=== PATIENT | male | born 1970 | race Hispanic/Latino ===

== ENCOUNTER 2019-10-17 16:28 | Inpatient (IN) | payer OTHER, SELFPAY ==
[~2019-10-17] VITALS: Ht 172.7 cm; Wt 113.0 kg
[2019-10-17 16:53] LABS: BASOPHILS % (AUTO) 0.1 % (0.0-5.0); EOSINOPHILS % (AUTO) 0.1 % (0.0-8.0); HEMATOCRIT 45.6 % (42-54); LYMPHOCYTES % (AUTO) 5.4 % (21.0-51.0); MEAN CORPUSCULAR HEMOGLOBIN 30.3 pg (27.0-33.0); MEAN CORPUSCULAR HGB CONC 34.6 g/dL (32.0-36.0); MEAN CORPUSCULAR VOLUME 87.4 fL (79-99); MONOCYTES % (AUTO) 3.4 % (3.0-13.0); NEUTROPHILS % (AUTO) 90.1 % (40.0-77.0); PLATELET COUNT (AUTO) 240 K/uL (130-400); RED BLOOD CELL COUNT(AUTO) 5.22 MIL/uL (4.50-6.20); RED CELL DISTRIBUTION WIDTH 11.7 % (11.0-15.5); WHITE BLOOD COUNT (AUTO) 13.1 K/uL (4.8-10.8)
[2019-10-17 17:09] LABS: CARBON DIOXIDE 26 mmol/L (21-32); CHLORIDE 96 mmol/L (101-111); CREATININE 1.3 mg/dL (0.5-1.5); GLOMERULAR FILTR. RATE CALC 62 mL/min (>60); GLUCOSE,RANDOM 256 mg/dL (70-105); POTASSIUM 3.4 mmol/L (3.5-5.1); SODIUM SERUM 131 mmol/L (136-145); UREA NITROGEN, BLOOD 14 mg/dL (7-18)
[2019-10-17 17:14] LABS: PARTIAL THROMBOPLASTIN TIME 30.6 SEC (26.3-35.5); PROTHROMBIN TIME 10.8 SEC (9.6-11.6)
[2019-10-17 17:16] LABS: LACTATE DEHYDROGENASE 394 U/L (81-234)
[2019-10-17 17:22] LABS: ALANINE AMINOTRANSFERASE 27 U/L (12-78); ALBUMIN 2.9 g/dL (3.5-5.0); ASPARTATE AMINOTRANSFERASE 27 U/L (10-37); BILIRUBIN,TOTAL 0.8 mg/dL (0.2-1.0); CREATINE KINASE, TOTAL 118 U/L (21-232); MYOGLOBIN 55 ng/mL (10-92); TOTAL PROTEIN, SERUM 8.2 g/dL (6.0-8.3); TROPONIN I < 0.04 ng/mL (0.00-0.06)
[2019-10-17] MEDS ORDERED: METHYLPREDNISOLONE SOD SUCC 40MG/ML 1ML ONE (18:01)
[2019-10-17] MEDS ORDERED: ENOXAPARIN SODIUM 120 MG/0.8ML SQ ONE (18:01)
[2019-10-17] MEDS ORDERED: ONDANSETRON HCL 4 MG/2 ML VIAL IV PRN (18:30)
[2019-10-17] MEDS ORDERED: ERGOCALCIFEROL (VITAMIN D2) 50,000 UNIT CAPSULE PO ONE (18:30)
[2019-10-17] MEDS: AZITHROMYCIN 500MG+NS 250ML 250 ML IV SCH (18:30)
[2019-10-17] MEDS ORDERED: ACETAMINOPHEN 325 MG TAB PO PRN ×2 (18:30)
[2019-10-17] MEDS ORDERED: DOXYCYCLINE 100MG+NS 250ML 250 ML IV SCH (18:30)
[2019-10-17] MEDS: POTASSIUM CHLORIDE 20 MEQ ERTAB PO SCH (18:45)
[2019-10-17] MEDS ORDERED: ADENOSINE 3 MG/ML 2ML VIAL IV ONE (18:54)
[2019-10-17] MEDS ORDERED: IOHEXOL 350 MG/ML 100ML INFUS..BTL IV ONE (19:00)
[2019-10-17] MEDS ORDERED: SODIUM CHLORIDE 0.9% 1000ML 1,000 ML IV SCH (19:15)
[2019-10-17] MEDS ORDERED: AZITHROMYCIN 500MG+NS 250ML 250 ML IV ONE (20:15)
[2019-10-17] MEDS ORDERED: ERGOCALCIFEROL (VITAMIN D2) 50,000 UNIT CAPSULE ONE (20:17)
[2019-10-17] MEDS ORDERED: POTASSIUM CHLORIDE 20 MEQ ERTAB PO ONE (20:18)
[2019-10-17] MEDS ORDERED: ACETYLCYSTEINE 600 MG CAPSULE ONE (20:18)
[2019-10-17] MEDS: ACETYLCYSTEINE 600 MG CAPSULE PO SCH (21:00)
[2019-10-17] MEDS: METHYLPREDNISOLONE SOD SUCC 40MG/ML 1ML IVP SCH (21:00)
[2019-10-17] MEDS: INSULIN HUMULIN R 100 UNIT/ML 3ML SQ SCH (21:00)
[2019-10-17] MEDS ORDERED: DOXYCYCLINE 100MG+NS 250ML 250 ML IV ONE (22:56)
[2019-10-18] VITALS (7 sets, daily range): BP systolic 103–122; BP diastolic 59–82
[2019-10-18] MEDS ORDERED: SITA100T12 PO (01:13)
[2019-10-18 05:10] LABS: BASOPHILS % (AUTO) 0.2 % (0.0-5.0); HEMATOCRIT 44.3 % (42-54); LYMPHOCYTES % (AUTO) 6.7 % (21.0-51.0); MEAN CORPUSCULAR HEMOGLOBIN 30.1 pg (27.0-33.0); MEAN CORPUSCULAR HGB CONC 34.1 g/dL (32.0-36.0); MEAN CORPUSCULAR VOLUME 88.4 fL (79-99); MONOCYTES % (AUTO) 3.9 % (3.0-13.0); NEUTROPHILS % (AUTO) 88.2 % (40.0-77.0); PLATELET COUNT (AUTO) 232 K/uL (130-400); RED BLOOD CELL COUNT(AUTO) 5.01 MIL/uL (4.50-6.20); RED CELL DISTRIBUTION WIDTH 11.8 % (11.0-15.5); WHITE BLOOD COUNT (AUTO) 11.4 K/uL (4.8-10.8)
[2019-10-18 05:31] LABS: ALANINE AMINOTRANSFERASE 24 U/L (12-78); ALBUMIN 2.8 g/dL (3.5-5.0); ASPARTATE AMINOTRANSFERASE 21 U/L (10-37); BILIRUBIN,TOTAL 0.6 mg/dL (0.2-1.0); CARBON DIOXIDE 27 mmol/L (21-32); CHLORIDE 101 mmol/L (101-111); GLOMERULAR FILTR. RATE CALC 84 mL/min (>60); GLUCOSE,RANDOM 154 mg/dL (70-105); LACTATE DEHYDROGENASE 382 U/L (81-234); POTASSIUM 3.9 mmol/L (3.5-5.1); SODIUM SERUM 137 mmol/L (136-145); TOTAL PROTEIN, SERUM 7.4 g/dL (6.0-8.3); UREA NITROGEN, BLOOD 12 mg/dL (7-18)
[2019-10-18] MEDS: INSULIN HUMULIN R 100 UNIT/ML 3ML SQ SCH ×4 (06:20→21:05)
[2019-10-18] MEDS: METHYLPREDNISOLONE SOD SUCC 40MG/ML 1ML IVP SCH ×3 (08:16→20:37)
[2019-10-18] MEDS: ENOXAPARIN SODIUM 40 MG/0.4 ML SYRINGE SQ SCH (08:16)
[2019-10-18] MEDS: ASCORBIC ACID 500 MG TAB PO SCH (08:17)
[2019-10-18] MEDS: ACETYLCYSTEINE 600 MG CAPSULE PO SCH ×2 (08:17→21:00)
[2019-10-18] MEDS: ZINC SULFATE 220 CAPSULE PO SCH (08:17)
--- NOTE | 2019-10-18 09:33 | NUR ---
CHART CHECK COMPLETED. Pt IS A 49 Y.O. MALE ADMITTED SECONDARY TO [facility]PIRAT[facility] FAILURE, COVID+. Pt HAS A PAST MEDICAL HISTORY SIGNIFICANT FOR DMII, HYPERTENSION, HLD. Pt CURRENTLY ON REGULAR TEXTURE,THIN LIQUID DIET (CONSISTENT CARB). PLEASE REQUEST FORMAL SKILLED SPEECH/SWALLOW EVALUATION IF Pt PRESENTS WITH +S/S OF ASPIRATION SUCH COUGH RESPONSE, THROAT CLEAR, OR WET VOCAL QUALITY DURING P.O. Addendum: 10/18/19 at 0935 by PATY RIZO, SPT ST Amended: Links added.
--- NOTE | 2019-10-18 11:24 | NUR ---
SELENA PLAN VISITED WITH PATIENT. PATIENT IN COVID UNIT. CALLED PATIENT ROOM AND PHONE. DID NOT ANSWER. LOOKED MY IN THE EYE SHOCK HIS HEAD AND CLOSED HIS EYES. DID NOT ANSWER PHONE. Addendum: 10/18/19 at 1126 by SHAKA BURROWS RN Amended: Links added.
--- NOTE | 2019-10-18 15:40 | NUR ---
Family Contact Pt oswaldo listed spouse to be Abimbola Bates with the phone number [phone]. This phone number is invalid.
[2019-10-18] MEDS: DOXYCYCLINE 100MG+NS 250ML 250 ML IV SCH ×2 (16:11→20:37)
[2019-10-18] MEDS: AZITHROMYCIN 500MG+NS 250ML 250 ML IV SCH (17:45)
[2019-10-18] MEDS: POTASSIUM CHLORIDE 20 MEQ ERTAB PO SCH (17:46)
[2019-10-19 04:53] VITALS: BP 122/76
[2019-10-19 05:03] LABS: BASOPHILS % (AUTO) 0.2 % (0.0-5.0); LYMPHOCYTES % (AUTO) 5.2 % (21.0-51.0); MEAN CORPUSCULAR HEMOGLOBIN 30.4 pg (27.0-33.0); MEAN CORPUSCULAR HGB CONC 34.3 g/dL (32.0-36.0); MEAN CORPUSCULAR VOLUME 88.5 fL (79-99); MONOCYTES % (AUTO) 3.3 % (3.0-13.0); NEUTROPHILS % (AUTO) 90.2 % (40.0-77.0); PLATELET COUNT (AUTO) 275 K/uL (130-400); RED BLOOD CELL COUNT(AUTO) 4.97 MIL/uL (4.50-6.20); RED CELL DISTRIBUTION WIDTH 11.6 % (11.0-15.5); WHITE BLOOD COUNT (AUTO) 13.2 K/uL (4.8-10.8)
[2019-10-19 05:26] LABS: ALANINE AMINOTRANSFERASE 24 U/L (12-78); ALBUMIN 2.6 g/dL (3.5-5.0); ASPARTATE AMINOTRANSFERASE 20 U/L (10-37); BILIRUBIN,TOTAL 0.5 mg/dL (0.2-1.0); CARBON DIOXIDE 26 mmol/L (21-32); CHLORIDE 103 mmol/L (101-111); GLOMERULAR FILTR. RATE CALC 84 mL/min (>60); GLUCOSE,RANDOM 181 mg/dL (70-105); LACTATE DEHYDROGENASE 414 U/L (81-234); SODIUM SERUM 138 mmol/L (136-145); UREA NITROGEN, BLOOD 17 mg/dL (7-18)
[2019-10-19] MEDS: INSULIN HUMULIN R 100 UNIT/ML 3ML SQ SCH ×4 (06:47→22:15)
[2019-10-19 08:23] VITALS: BP 132/88
[2019-10-19] MEDS: METHYLPREDNISOLONE SOD SUCC 40MG/ML 1ML IVP SCH ×3 (09:21→22:15)
[2019-10-19] MEDS: ZINC SULFATE 220 CAPSULE PO SCH (09:21)
[2019-10-19] MEDS: ASCORBIC ACID 500 MG TAB PO SCH (09:21)
[2019-10-19] MEDS: ENOXAPARIN SODIUM 40 MG/0.4 ML SYRINGE SQ SCH (09:21)
[2019-10-19] MEDS: ACETYLCYSTEINE 600 MG CAPSULE PO SCH ×2 (09:21→21:00)
[2019-10-19] MEDS: DOXYCYCLINE 100MG+NS 250ML 250 ML IV SCH ×2 (09:22→22:15)
[2019-10-19 11:49] VITALS: BP 131/93
[2019-10-19 15:34] VITALS: BP 128/92
[2019-10-19] MEDS: AZITHROMYCIN 500MG+NS 250ML 250 ML IV SCH (17:30)
[2019-10-19] MEDS: POTASSIUM CHLORIDE 20 MEQ ERTAB PO SCH (17:30)
[2019-10-19 19:28] VITALS: BP 137/74
--- NOTE | 2019-10-19 22:57 | NUR ---
PATIENT WAS ABLE TO GET UP TO BEDSIDE COMMODE WITH MINIMAL ASSIST. OXYGEN SAT MAINTAINED. NO COMPLAINTS OF RESPIRATORY DISTRESS OR SHORTNESS OF BREATH AT THIS TIME..
[2019-10-19 23:06] VITALS: BP 106/62
[2019-10-20 03:40] VITALS: BP 135/97
[2019-10-20] MEDS: INSULIN HUMULIN R 100 UNIT/ML 3ML SQ SCH ×4 (06:10→21:08)
[2019-10-20 06:11] LABS: BASOPHILS % (AUTO) 0.2 % (0.0-5.0); LYMPHOCYTES % (AUTO) 5.6 % (21.0-51.0); MEAN CORPUSCULAR HEMOGLOBIN 30.4 pg (27.0-33.0); MEAN CORPUSCULAR HGB CONC 34.1 g/dL (32.0-36.0); MEAN CORPUSCULAR VOLUME 89.2 fL (79-99); MONOCYTES % (AUTO) 4.4 % (3.0-13.0); NEUTROPHILS % (AUTO) 88.1 % (40.0-77.0); PLATELET COUNT (AUTO) 300 K/uL (130-400); RED BLOOD CELL COUNT(AUTO) 4.93 MIL/uL (4.50-6.20); RED CELL DISTRIBUTION WIDTH 11.6 % (11.0-15.5); WHITE BLOOD COUNT (AUTO) 12.4 K/uL (4.8-10.8)
[2019-10-20 06:33] LABS: ALANINE AMINOTRANSFERASE 19 U/L (12-78); ALBUMIN 2.7 g/dL (3.5-5.0); ASPARTATE AMINOTRANSFERASE 19 U/L (10-37); BILIRUBIN,TOTAL 0.5 mg/dL (0.2-1.0); CARBON DIOXIDE 28 mmol/L (21-32); CHLORIDE 104 mmol/L (101-111); GLOMERULAR FILTR. RATE CALC 84 mL/min (>60); GLUCOSE,RANDOM 178 mg/dL (70-105); LACTATE DEHYDROGENASE 373 U/L (81-234); SODIUM SERUM 140 mmol/L (136-145); TOTAL PROTEIN, SERUM 7.1 g/dL (6.0-8.3); UREA NITROGEN, BLOOD 21 mg/dL (7-18)
[2019-10-20 08:00] VITALS: BP 121/88
[2019-10-20 11:00] VITALS: BP 118/73
[2019-10-20] MEDS: ASCORBIC ACID 500 MG TAB PO SCH (11:18)
[2019-10-20] MEDS: ENOXAPARIN SODIUM 40 MG/0.4 ML SYRINGE SQ SCH (11:18)
[2019-10-20] MEDS: DOXYCYCLINE 100MG+NS 250ML 250 ML IV SCH ×2 (11:18→21:06)
[2019-10-20] MEDS: ZINC SULFATE 220 CAPSULE PO SCH (11:18)
[2019-10-20] MEDS: METHYLPREDNISOLONE SOD SUCC 40MG/ML 1ML IVP SCH ×3 (11:18→21:06)
[2019-10-20] MEDS: ACETYLCYSTEINE 600 MG CAPSULE PO SCH ×2 (12:23→21:06)
--- NOTE | 2019-10-20 13:14 | NUR ---
DC PLAN PATIENT IN COVID UNIT. STOOD IN FRONT OF DOOR THROUGH WINDOW. SAW PHONE RINGING. PATIENT ROLLED OVER DID NOT ANSWER PHONE. Addendum: 10/20/19 at 1316 by SHAKA BURROWS RN CM Amended: Links added.
[2019-10-20 15:30] VITALS: BP 127/89
[2019-10-20] MEDS: POTASSIUM CHLORIDE 20 MEQ ERTAB PO SCH (17:33)
[2019-10-20] MEDS: AZITHROMYCIN 500MG+NS 250ML 250 ML IV SCH (17:33)
[2019-10-20 20:20] VITALS: BP 116/80
[2019-10-20 23:55] VITALS: BP 112/67
[2019-10-21 04:00] VITALS: BP 116/73
[2019-10-21] MEDS: INSULIN HUMULIN R 100 UNIT/ML 3ML SQ SCH ×4 (06:19→21:06)
[2019-10-21 07:00] VITALS: BP 123/81
[2019-10-21] MEDS: ASCORBIC ACID 500 MG TAB PO SCH (08:41)
[2019-10-21] MEDS: ZINC SULFATE 220 CAPSULE PO SCH (08:41)
[2019-10-21] MEDS: ACETYLCYSTEINE 600 MG CAPSULE PO SCH ×2 (08:41→21:05)
[2019-10-21] MEDS: ENOXAPARIN SODIUM 40 MG/0.4 ML SYRINGE SQ SCH (08:41)
[2019-10-21] MEDS: DOXYCYCLINE 100MG+NS 250ML 250 ML IV SCH ×2 (08:43→21:05)
[2019-10-21] MEDS: METHYLPREDNISOLONE SOD SUCC 40MG/ML 1ML IVP SCH ×3 (08:47→21:05)
[2019-10-21] MEDS ORDERED: PHARMACY COMMUNICATION***REMDESIVIR ORDER MISC SCH (10:00)
[2019-10-21 11:00] VITALS: BP 122/77
[2019-10-21 15:00] VITALS: BP 130/76
--- NOTE | 2019-10-21 16:05 | NUR ---
DC PLAN CALLED PATIENT ROOM AND PHONE NO ANSWER. KLEVER WILL CONTINUE TO TRY. Addendum: 10/21/19 at 1605 by SHAKA BURROWS RN CM Amended: Links added.
[2019-10-21] MEDS: POTASSIUM CHLORIDE 20 MEQ ERTAB PO SCH (17:07)
[2019-10-21] MEDS: AZITHROMYCIN 500MG+NS 250ML 250 ML IV SCH (17:08)
[2019-10-21 20:20] VITALS: BP 106/64
[2019-10-21 23:35] VITALS: BP 113/76
[2019-10-22 04:35] VITALS: BP 122/56
[2019-10-22] MEDS: INSULIN HUMULIN R 100 UNIT/ML 3ML SQ SCH ×4 (06:10→21:32)
[2019-10-22 07:00] VITALS: BP 119/79
[2019-10-22 07:19] LABS: BASOPHILS % (AUTO) 0.3 % (0.0-5.0); HEMATOCRIT 42.8 % (42-54); LYMPHOCYTES % (AUTO) 7.9 % (21.0-51.0); MEAN CORPUSCULAR HEMOGLOBIN 30.5 pg (27.0-33.0); MEAN CORPUSCULAR HGB CONC 34.8 g/dL (32.0-36.0); MEAN CORPUSCULAR VOLUME 87.5 fL (79-99); MONOCYTES % (AUTO) 4.1 % (3.0-13.0); NEUTROPHILS % (AUTO) 84.4 % (40.0-77.0); PLATELET COUNT (AUTO) 296 K/uL (130-400); RED BLOOD CELL COUNT(AUTO) 4.89 MIL/uL (4.50-6.20); RED CELL DISTRIBUTION WIDTH 11.5 % (11.0-15.5)
[2019-10-22 07:32] LABS: ALBUMIN 2.6 g/dL (3.5-5.0); BILIRUBIN,TOTAL 0.6 mg/dL (0.2-1.0); CREATININE 0.9 mg/dL (0.5-1.5); CRP QUANTITATIVE 12.2 mg/L (0.00-9.0); POTASSIUM 4.1 mmol/L (3.5-5.1); TOTAL PROTEIN, SERUM 6.5 g/dL (6.0-8.3)
[2019-10-22] MEDS ORDERED: COMPOUND IV REFRIGERATED 1 EACH IVSOLN MISC PRN (08:00)
[2019-10-22] MEDS: ASCORBIC ACID 500 MG TAB PO SCH (08:24)
[2019-10-22] MEDS: ZINC SULFATE 220 CAPSULE PO SCH (08:24)
[2019-10-22] MEDS: ACETYLCYSTEINE 600 MG CAPSULE PO SCH ×2 (08:24→20:56)
[2019-10-22] MEDS: ENOXAPARIN SODIUM 40 MG/0.4 ML SYRINGE SQ SCH (08:25)
[2019-10-22] MEDS: METHYLPREDNISOLONE SOD SUCC 40MG/ML 1ML IVP SCH ×3 (08:25→20:57)
[2019-10-22] MEDS: DOXYCYCLINE 100MG+NS 250ML 250 ML IV SCH ×2 (08:25→20:56)
[2019-10-22] MEDS ORDERED: REMDESIVIR (EUA) 520 200 MG in SODIUM CHLORIDE 0.9% 250 ML IV SCH (09:00)
[2019-10-22 11:00] VITALS: BP 110/74
[2019-10-22 15:00] VITALS: BP 112/73
[2019-10-22] MEDS: AZITHROMYCIN 500MG+NS 250ML 250 ML IV SCH (18:44)
[2019-10-22] MEDS: POTASSIUM CHLORIDE 20 MEQ ERTAB PO SCH (18:45)
[2019-10-22 20:00] VITALS: BP 116/77
[2019-10-22 23:57] VITALS: BP 120/80
[2019-10-23 03:40] VITALS: BP 115/63
[2019-10-23 05:31] LABS: CRP QUANTITATIVE 4.4 mg/L (0.00-9.0)
[2019-10-23 07:00] VITALS: BP 114/78
[2019-10-23] MEDS: INSULIN HUMULIN R 100 UNIT/ML 3ML SQ SCH ×4 (07:21→21:30)
[2019-10-23] MEDS: DOXYCYCLINE 100MG+NS 250ML 250 ML IV SCH ×2 (08:43→21:27)
[2019-10-23] MEDS: ACETYLCYSTEINE 600 MG CAPSULE PO SCH ×2 (08:44→21:28)
[2019-10-23] MEDS: ASCORBIC ACID 500 MG TAB PO SCH (08:44)
[2019-10-23] MEDS: ZINC SULFATE 220 CAPSULE PO SCH (08:44)
[2019-10-23] MEDS: METHYLPREDNISOLONE SOD SUCC 40MG/ML 1ML IVP SCH ×3 (08:44→21:28)
[2019-10-23] MEDS: ENOXAPARIN SODIUM 40 MG/0.4 ML SYRINGE SQ SCH (08:45)
[2019-10-23] MEDS: REMDESIVIR (EUA) 520 100 MG in SODIUM CHLORIDE 0.9% 250 ML IV SCH (09:46)
[2019-10-23 11:00] VITALS: BP 106/67
[2019-10-23 15:00] VITALS: BP 106/70
[2019-10-23] MEDS: AZITHROMYCIN 500MG+NS 250ML 250 ML IV SCH (18:18)
[2019-10-23] MEDS: POTASSIUM CHLORIDE 20 MEQ ERTAB PO SCH (18:19)
[2019-10-23 19:42] VITALS: BP 121/74
[2019-10-23 23:55] VITALS: BP 121/74
[2019-10-24 03:34] VITALS: BP 115/76
[2019-10-24 05:31] LABS: CRP QUANTITATIVE 3.7 mg/L (0.00-9.0)
[2019-10-24] MEDS: POTASSIUM CHLORIDE 20 MEQ ERTAB PO SCH (07:07)
[2019-10-24] MEDS: INSULIN HUMULIN R 100 UNIT/ML 3ML SQ SCH ×4 (07:24→21:00)
[2019-10-24] MEDS: ACETYLCYSTEINE 600 MG CAPSULE PO SCH ×2 (07:24→20:50)
[2019-10-24] MEDS: METHYLPREDNISOLONE SOD SUCC 40MG/ML 1ML IVP SCH (07:24)
[2019-10-24] MEDS: ZINC SULFATE 220 CAPSULE PO SCH (07:24)
[2019-10-24] MEDS: REMDESIVIR (EUA) 520 100 MG in SODIUM CHLORIDE 0.9% 250 ML IV SCH (07:25)
[2019-10-24] MEDS: ASCORBIC ACID 500 MG TAB PO SCH (07:25)
[2019-10-24] MEDS: DOXYCYCLINE 100MG+NS 250ML 250 ML IV SCH ×2 (07:25→20:50)
[2019-10-24] MEDS: ENOXAPARIN SODIUM 40 MG/0.4 ML SYRINGE SQ SCH (07:27)
[2019-10-24 08:00] VITALS: BP 107/73
--- NOTE | 2019-10-24 08:00 | NUR ---
ASSESSMENT PT IS AAOX3 DENIES CP DENIES SOB DENIES NV, SITTING UPRIGHT IN BED. AM MEDS GIVEN. PATIENT IS O2 VIA NONREBREATHER 15LPM, O2 SAT VIA BEDSIDE OXIMITER IS 95%. CALL LIGHT WITHIN REACH.
--- NOTE | 2019-10-24 09:30 | NUR ---
PLACED ON O2 VIA NC 4LPM TOLERATING WELL, O2 SAT MID 90S
--- NOTE | 2019-10-24 10:50 | NUR ---
RDSCREEN - LOS X 7 Pt admitted with ARF, COVID-19 positive. Pt with 75gm CCD in [address], good PO intake, no report of GI distress. Pt with Obesity Class II. Elevated BG (155), A1C 7.0, WBC 12.0. Vitamin C, Zinc in place. NRB in place. Recommend add Glucerna QD Recommend continue 75gm CC diet order. RD to continue to monitor. Please notify as additional nutrition concerns arise. Thank you. Addendum: 10/24/19 at [address] Amended: Links added.
[2019-10-24 12:00] VITALS: BP 97/60
--- NOTE | 2019-10-24 13:50 | NUR ---
DC PLAN CALLED PATIENT ROOM AND NUMBER NO ANSWER. KLEVER WILL CONTINUE TO FOLLOW. Addendum: 10/24/19 at 1351 by SHAKA BURROWS RN CM Amended: Links added.
[2019-10-24 17:48] VITALS: BP 122/83
--- NOTE | 2019-10-24 18:26 | NUR ---
O2 SAT REMAINS MID 90S ON 4LPM NC. NO COMPLAINTS.
[2019-10-24 20:00] VITALS: BP 104/69
[2019-10-25] VITALS: BP_SYST 110; BP_SYST 112; BP_DIAS 72; BP_DIAS 94
[2019-10-25 04:00] VITALS: BP 93/66
[2019-10-25 04:21] LABS: BASOPHILS % (AUTO) 0.4 % (0.0-5.0); EOSINOPHILS % (AUTO) 0.3 % (0.0-8.0); HEMATOCRIT 44.6 % (42-54); LYMPHOCYTES % (AUTO) 27.3 % (21.0-51.0); MEAN CORPUSCULAR HEMOGLOBIN 30.4 pg (27.0-33.0); MEAN CORPUSCULAR HGB CONC 34.5 g/dL (32.0-36.0); MEAN CORPUSCULAR VOLUME 88.1 fL (79-99); NEUTROPHILS % (AUTO) 60.8 % (40.0-77.0); PLATELET COUNT (AUTO) 297 K/uL (130-400); RED BLOOD CELL COUNT(AUTO) 5.06 MIL/uL (4.50-6.20); RED CELL DISTRIBUTION WIDTH 11.8 % (11.0-15.5); WHITE BLOOD COUNT (AUTO) 11.3 K/uL (4.8-10.8)
[2019-10-25 04:43] LABS: ALANINE AMINOTRANSFERASE 45 U/L (12-78); ALBUMIN 2.5 g/dL (3.5-5.0); ASPARTATE AMINOTRANSFERASE 18 U/L (10-37); BILIRUBIN,TOTAL 0.5 mg/dL (0.2-1.0); CARBON DIOXIDE 30 mmol/L (21-32); CHLORIDE 105 mmol/L (101-111); CREATININE 1.1 mg/dL (0.5-1.5); GLOMERULAR FILTR. RATE CALC 75 mL/min (>60); GLUCOSE,RANDOM 118 mg/dL (70-105); POTASSIUM 3.9 mmol/L (3.5-5.1); SODIUM SERUM 140 mmol/L (136-145); TOTAL PROTEIN, SERUM 5.8 g/dL (6.0-8.3); UREA NITROGEN, BLOOD 22 mg/dL (7-18)
[2019-10-25 04:44] LABS: CRP QUANTITATIVE < 2.00 mg/L (0.00-9.0)
[2019-10-25 05:33] LABS: ERYTHROCYTE SEDIMENTATION RATE 11 MM/HR (0-20)
[2019-10-25] MEDS: INSULIN HUMULIN R 100 UNIT/ML 3ML SQ SCH ×4 (06:53→16:51)
[2019-10-25 08:00] VITALS: BP 97/61
[2019-10-25] MEDS: ENOXAPARIN SODIUM 40 MG/0.4 ML SYRINGE SQ SCH (08:18)
[2019-10-25] MEDS: ZINC SULFATE 220 CAPSULE PO SCH (08:20)
[2019-10-25] MEDS: ACETYLCYSTEINE 600 MG CAPSULE PO SCH ×2 (08:20→19:51)
[2019-10-25] MEDS: DEXAMETHASONE 4 MG TAB PO SCH (08:21)
[2019-10-25] MEDS: ASCORBIC ACID 500 MG TAB PO SCH (08:21)
[2019-10-25] MEDS: LINAGLIPTIN 5 MG TABLET PO SCH (08:21)
[2019-10-25 12:00] VITALS: BP 103/76
[2019-10-25] MEDS: REMDESIVIR (EUA) 520 100 MG in SODIUM CHLORIDE 0.9% 250 ML IV SCH (12:50)
[2019-10-25 15:53] VITALS: BP 98/60
[2019-10-25] MEDS: POTASSIUM CHLORIDE 20 MEQ ERTAB PO SCH (17:03)
[2019-10-25 20:00] VITALS: BP 101/63
[2019-10-26] VITALS (7 sets, daily range): BP systolic 93–122; BP diastolic 58–72
[2019-10-26 05:13] LABS: BASOPHILS % (AUTO) 0.2 % (0.0-5.0); EOSINOPHILS % (AUTO) 0.2 % (0.0-8.0); HEMATOCRIT 45.5 % (42-54); LYMPHOCYTES % (AUTO) 17.8 % (21.0-51.0); MEAN CORPUSCULAR HGB CONC 33.6 g/dL (32.0-36.0); MEAN CORPUSCULAR VOLUME 89.2 fL (79-99); MONOCYTES % (AUTO) 6.9 % (3.0-13.0); NEUTROPHILS % (AUTO) 72.9 % (40.0-77.0); PLATELET COUNT (AUTO) 301 K/uL (130-400); RED CELL DISTRIBUTION WIDTH 11.7 % (11.0-15.5); WHITE BLOOD COUNT (AUTO) 10.8 K/uL (4.8-10.8)
[2019-10-26 05:25] LABS: ALBUMIN 2.7 g/dL (3.5-5.0); BILIRUBIN,TOTAL 0.6 mg/dL (0.2-1.0); CREATININE 0.9 mg/dL (0.5-1.5); CRP QUANTITATIVE 3.9 mg/L (0.00-9.0); POTASSIUM 4.2 mmol/L (3.5-5.1); TOTAL PROTEIN, SERUM 6.3 g/dL (6.0-8.3)
[2019-10-26 06:10] LABS: ERYTHROCYTE SEDIMENTATION RATE 15 MM/HR (0-20)
[2019-10-26] MEDS: INSULIN HUMULIN R 100 UNIT/ML 3ML SQ SCH ×4 (06:39→21:18)
[2019-10-26] MEDS: LINAGLIPTIN 5 MG TABLET PO SCH (09:45)
[2019-10-26] MEDS: ZINC SULFATE 220 CAPSULE PO SCH (09:45)
[2019-10-26] MEDS: ASCORBIC ACID 500 MG TAB PO SCH (09:46)
[2019-10-26] MEDS: DEXAMETHASONE 4 MG TAB PO SCH (09:46)
[2019-10-26] MEDS: ACETYLCYSTEINE 600 MG CAPSULE PO SCH ×2 (09:46→21:17)
[2019-10-26] MEDS: ENOXAPARIN SODIUM 40 MG/0.4 ML SYRINGE SQ SCH (09:47)
[2019-10-26] MEDS: REMDESIVIR (EUA) 520 100 MG in SODIUM CHLORIDE 0.9% 250 ML IV SCH (11:44)
--- NOTE | 2019-10-26 12:29 | NUR ---
[facility] Alternative Care Site- Refusal Informed patient Dr. Cazares recommended for patient to go to the the Alternative Care Site at [facility] ([facility]) to continue recovery from COVID-19. Patient declined. Stated he doesn't want to go because it is "just a center". Informed patient that the facility is a hospital and would receive around the clock nursing care and would have a physician there 22/09. Patient declined again. Stated, "why would I want to go there when my doctor today said I will be ready for discharge tomorrow". Informed patient is still on oxygen at 4 LPM and the team at the [facility] would be able to continue providing treatments in hopes to wean patient completely off of oxygen. Patient declined again. Refusal to transfer signed by patient and placed in chart. Updated Dr. Cazares of patient's response. CD
[2019-10-26] MEDS: POTASSIUM CHLORIDE 20 MEQ ERTAB PO SCH (16:58)
[2019-10-27 03:34] VITALS: BP 108/72
[2019-10-27 05:19] LABS: BASOPHILS % (AUTO) 0.3 % (0.0-5.0); EOSINOPHILS % (AUTO) 0.2 % (0.0-8.0); HEMATOCRIT 46.2 % (42-54); LYMPHOCYTES % (AUTO) 16.3 % (21.0-51.0); MEAN CORPUSCULAR HEMOGLOBIN 30.2 pg (27.0-33.0); MEAN CORPUSCULAR HGB CONC 34.2 g/dL (32.0-36.0); MEAN CORPUSCULAR VOLUME 88.3 fL (79-99); MONOCYTES % (AUTO) 7.6 % (3.0-13.0); NEUTROPHILS % (AUTO) 73.3 % (40.0-77.0); PLATELET COUNT (AUTO) 270 K/uL (130-400); RED BLOOD CELL COUNT(AUTO) 5.23 MIL/uL (4.50-6.20); RED CELL DISTRIBUTION WIDTH 11.9 % (11.0-15.5); WHITE BLOOD COUNT (AUTO) 10.7 K/uL (4.8-10.8)
--- NOTE | 2019-10-27 05:49 | NUR ---
Upon chart review 2 units of convalescent plasma noted to be ordered 21AUG but not seen as given. Pt states he was told previously that plasma for his blood type would not be available until Thursday 28AUG. Called blood bank at 1348, [facility] states no record of pt receiving plasma and states that new type and screen will be needed. [facility] states plasma is available for pt's blood type. Discussed w/Elaine James RESOURCE SPECIALIST TEACHER. Consent form given to pt.
[2019-10-27] MEDS: INSULIN HUMULIN R 100 UNIT/ML 3ML SQ SCH ×3 (06:00→17:10)
[2019-10-27 06:01] LABS: ALBUMIN 2.8 g/dL (3.5-5.0); BILIRUBIN,TOTAL 0.5 mg/dL (0.2-1.0); CRP QUANTITATIVE 4.7 mg/L (0.00-9.0); POTASSIUM 4.3 mmol/L (3.5-5.1); TOTAL PROTEIN, SERUM 6.1 g/dL (6.0-8.3)
[2019-10-27 06:28] LABS: ERYTHROCYTE SEDIMENTATION RATE 11 MM/HR (0-20)
[2019-10-27 08:29] VITALS: BP 102/66
[2019-10-27] MEDS: DEXAMETHASONE 4 MG TAB PO SCH (08:31)
[2019-10-27] MEDS: ZINC SULFATE 220 CAPSULE PO SCH (08:31)
[2019-10-27] MEDS: ACETYLCYSTEINE 600 MG CAPSULE PO SCH (08:31)
[2019-10-27] MEDS: ASCORBIC ACID 500 MG TAB PO SCH (08:31)
[2019-10-27] MEDS: ENOXAPARIN SODIUM 40 MG/0.4 ML SYRINGE SQ SCH (08:32)
[2019-10-27] MEDS: LINAGLIPTIN 5 MG TABLET PO SCH (08:32)
[2019-10-27] MEDS ORDERED: SODIUM CHLORIDE 0.9% 250 ML IV ONE (09:40)
[2019-10-27 12:27] VITALS: BP 95/60
[2019-10-27 16:38] VITALS: BP 102/67
[2019-10-27] MEDS ORDERED: APIX2.5T PO (17:28)
[2019-10-27] MEDS ORDERED: DEXA6TAB PO (17:28)
== END 2019-10-27 19:00 | disposition home or self-care (01) | DRG 177 ==
LOC: EDH 16:28 → EDHIP 16:29 → 2DH 10-18 00:09
PROVIDERS: ADMIT Internal Medicine; ATTEND Internal Medicine
PROC: XW033E5 Introduction of Remdesivir Anti-infective into Peripheral Vein, Percutaneous Approach, New Technology Group 5 (ICD-10-PCS; 2019-10-22)
PROC: XW033E5 Introduction of Remdesivir Anti-infective into Peripheral Vein, Percutaneous Approach, New Technology Group 5 (ICD-10-PCS; 2019-10-23)
PROC: XW033E5 Introduction of Remdesivir Anti-infective into Peripheral Vein, Percutaneous Approach, New Technology Group 5 (ICD-10-PCS; 2019-10-24)
PROC: XW033E5 Introduction of Remdesivir Anti-infective into Peripheral Vein, Percutaneous Approach, New Technology Group 5 (ICD-10-PCS; 2019-10-25)
PROC: XW033E5 Introduction of Remdesivir Anti-infective into Peripheral Vein, Percutaneous Approach, New Technology Group 5 (ICD-10-PCS; 2019-10-26)
PROC: XW13325 Transfusion of Convalescent Plasma (Nonautologous) into Peripheral Vein, Percutaneous Approach, New Technology Group 5 (ICD-10-PCS; principal; 2019-10-27)
DX: U07.1 COVID-19 (principal); J96.01 Acute respiratory failure with hypoxia; J12.89 Other viral pneumonia; E87.1 Hypo-osmolality and hyponatremia; E11.9 Type 2 diabetes mellitus without complications; E87.6 Hypokalemia; E78.5 Hyperlipidemia, unspecified; I10 Essential (primary) hypertension; Z79.01 Long term (current) use of anticoagulants; E66.9 Obesity, unspecified; Z68.37 Body mass index [BMI] 37.0-37.9, adult; Z83.3 Family history of diabetes mellitus
CPT/HCPCS: 36415; 36430; 71045; 71275; 80053; 82550; 82728; 82948; 83036; 83605; 83615; 83874; 84145; 84484; 85025; 85378; 85610; 85651; 85730; 86140; 86850; 86900; 86901; 86927; 87040; 87426; 93005; 99291; G0378; J0153; J0456; J1650; J1815; J2920; J3490; J7050; J8540; Q9967; U0003